=== PATIENT | female | born 1995 ===

== ENCOUNTER 2024-03-29 15:00 | Inpatient (IN) | payer OTHER ==
[~2024-03-29] VITALS: Ht 152.4 cm; Wt 79.8 kg
[2024-04-10] MEDS ORDERED: AMPICILLIN SODIUM 2,000 MG VIAL IV ONE (09:00)
[2024-04-10 09:12] VITALS: BP 102/54
[2024-04-10] MEDS ORDERED: AMPICILLIN SODIUM 2,000 MG VIAL ONE (09:39)
[2024-04-10] MEDS ORDERED: AMPICILLIN SODIUM 1,000 MG VIAL IV SCH ×2 (09:51→13:00)
[2024-04-10] MEDS ORDERED: RINGERS SOLUTION,LACTATED 1,000 ML IV SCH (10:00)
[2024-04-10] MEDS ORDERED: OXYTOCIN 20 UNITS/500ML RL PIGGYBAG IV SCH (10:00)
[2024-04-10 12:11] VITALS: BP 110/45
[2024-04-10 15:42] VITALS: BP 128/61
[2024-04-10] MEDS ORDERED: PROMETHAZINE HCL 25 MG/ML AMPUL IV ONE (16:00)
[2024-04-10] MEDS ORDERED: MEPERIDINE HCL/PF 50 MG/ML VIAL IV ONE (16:00)
[2024-04-10] MEDS ORDERED: PROMETHAZINE HCL 25 MG/ML AMPUL ONE (16:00)
[2024-04-10] MEDS ORDERED: OXYTOCIN 20 UNITS/1000ML RL PIGGYBAG IV ONE (18:12)
[2024-04-10] MEDS ORDERED: ERYTHROMYCIN BASE OPHT 1GM EACH TUBE OP ONE ×2 (18:12→21:43)
[2024-04-10] MEDS ORDERED: LIDOCAINE HCL 1% 10ML VIAL ONE (18:12)
[2024-04-10] MEDS ORDERED: CHLORHEXIDINE GLUCONATE 120 ML BOTTLE TOP ONE (18:12)
[2024-04-10] MEDS ORDERED: OXYTOCIN 10 UNITS/ML VIAL ONE (21:43)
[2024-04-10] MEDS ORDERED: OXYTOCIN 1,000 ML IV ONE (23:45)
[2024-04-11] MEDS ORDERED: KETOROLAC TROMETHAMINE 30 MG VIAL IV SCH
[2024-04-11] MEDS ORDERED: MORPHINE SULFATE 4 MG/ML VIAL IV SCH (01:00)
[2024-04-11] MEDS ORDERED: MORPHINE SULFATE 4 MG/ML VIAL IV ONE ×2 (01:05→02:50)
[2024-04-11] MEDS ORDERED: CEFAZOLIN SODIUM 1,000 MG VIAL IV ONE (02:45)
[2024-04-11] MEDS ORDERED: AZITHROMYCIN 500 MG VIAL IV ONE (02:45)
[2024-04-11] MEDS ORDERED: OXYTOCIN 10 UNITS/ML VIAL ONE (03:33)
[2024-04-11] MEDS ORDERED: ACETAMINOPHEN 500 MG GEL..CAP PO SCH (06:00)
[2024-04-11 06:59] LABS: HEMATOCRIT 40.1 % (36.0-45.00); HEMOGLOBIN 13.2 g/dL (12.0-15.00); MEAN CELL VOLUME 84.8 fL (80.00-100.00); PLATELET COUNT 203 K/uL (150-450); RED BLOOD COUNT 4.73 M/uL (4.00-6.00); RED CELL DISTRIBUTION WIDTH 12.6 % (11.5-14.5)
[2024-04-11] MEDS ORDERED: SIMETHICONE 125 MG CAPSULE PO SCH (09:00)
[2024-04-11] MEDS ORDERED: PNV,CALCIUM 72/IRON/FOLIC ACID 1 TAB TABLET PO SCH (09:00)
[2024-04-11] MEDS ORDERED: DOCUSATE SODIUM 100MG CAP PO SCH (09:00)
[2024-04-11] MEDS ORDERED: GABAPENTIN 300 MG CAPSULE PO SCH (09:00)
[2024-04-11] MEDS ORDERED: OXYTOCIN 500 ML IV SCH (10:00)
[2024-04-11] MEDS ORDERED: IBUprofen 600 MG TABLET PO SCH (12:00)
[2024-04-11 16:15] VITALS: BP 118/67
[2024-04-12] VITALS: BP 98/63; O2SAT 99
[2024-04-12 08:37] VITALS: BP 111/72; O2SAT 99
[2024-04-12 13:09] VITALS: BP 104/71
[2024-04-12 17:48] VITALS: BP 108/74; O2SAT 99
[2024-04-12 21:52] VITALS: BP 100/67; O2SAT 100
[2024-04-13 00:21] VITALS: BP 106/69
[2024-04-13 08:00] VITALS: BP 104/69; O2SAT 97
[2024-04-15] MEDS ORDERED: ERYTHROMYCIN BASE OPHT 1GM EACH TUBE OP ONE (13:15)
[2024-04-15] MEDS ORDERED: OXYTOCIN 20 UNITS/1000ML RL PIGGYBAG IV ONE (13:15)
== END 2024-04-13 18:23 | disposition home or self-care (01) | DRG 788 ==
LOC: LDR 04-08 15:00 → O/R 04-10 22:20 → OB/GYN 04-11
PROVIDERS: Obstetrics & Gynecology Gynecology; ADMIT Obstetrics & Gynecology Maternal & Fetal Medicine; ATTEND Obstetrics & Gynecology Maternal & Fetal Medicine
PROC: 4A1HXCZ Monitoring of Products of Conception, Cardiac Rate, External Approach (ICD-10-PCS; 2024-04-10)
PROC: 10D00Z1 Extraction of Products of Conception, Low, Open Approach (ICD-10-PCS; principal; 2024-04-10 21:00)
DX: O36.63X0 Maternal care for excessive fetal growth, third trimester, not applicable or unspecified (principal); Z3A.40 40 weeks gestation of pregnancy; Z37.0 Single live birth

== ENCOUNTER 2024-04-08 08:38 | Outpatient (CLI) | payer OTHER | END 2024-04-08 09:36 | disposition home or self-care (01) | LOC: NST 08:38 | PROVIDERS: ATTEND Obstetrics & Gynecology | DX: Z3A.40 40 weeks gestation of pregnancy (principal) ==